=== PATIENT | female | born 1975 | race Hispanic/Latino ===

== ENCOUNTER 2022-08-09 10:08 | Inpatient (IN) | payer BC ==
[2022-08-08 12:24] LABS: Hemoglobin 12.9 g/dL (12.0-15.5); Platelet Count 260 10x3/uL (150-450)
[2022-08-08 13:07] LABS: HBSAg Index 0.14 S/CO (0-0.99); Hep B Surf Ag Non-Reactive S/CO (NonReactive)
[2022-08-08 13:08] LABS: Syphilis Antibody Nonreactive (Nonreactive); Syphilis Antibody Index 0.03 S/CO (<1.00 Non-Reactive)
[2022-08-08 13:09] LABS: SARS-CoV-2 NAA Rapid Test DETECTED (NotDetected)
[2022-08-09] MEDS ORDERED: Carboprost 250 MCG/ML AMP IM PRN (10:43)
[2022-08-09] MEDS ORDERED: Promethazine HCl 25 MG/ML VIAL IM PRN ×3 (10:43→19:36)
[2022-08-09] MEDS ORDERED: Bicitra 30 ML UDCUP PO PRN (10:43)
[2022-08-09] MEDS ORDERED: Methylergonovine 0.2 MG/ML VIAL IM PRN ×2 (10:43→15:29)
[2022-08-09] MEDS ORDERED: Diphenoxylate HCl/Atropine Tablet PO PRN ×2 (10:43)
[2022-08-09] MEDS ORDERED: Famotidine/PF 20 mg/2ml Vial SLOW IVP PRN (10:43)
[2022-08-09] MEDS ORDERED: Tranexamic Acid 1,000 MG in Sodium Chloride 0.9% 250 ML 250 ML IVPB PRN (10:43)
[2022-08-09] MEDS ORDERED: hydrALAZINE 20 MG/ML VIAL SLOW IVP PRN ×2 (10:43→15:29)
[2022-08-09] MEDS ORDERED: Butorphanol Tartrate 1 MG/ML VIAL SLOW IVP PRN (10:43)
[2022-08-09] MEDS ORDERED: Ondansetron PF 4 MG/2 ML Vial IVP PRN ×3 (10:43→19:36)
[2022-08-09] MEDS ORDERED: Acetaminophen 500 MG TAB PO PRN (10:43)
[2022-08-09] MEDS ORDERED: Misoprostol 200 MCG TAB PR PRN ×2 (10:43→15:29)
[2022-08-09] MEDS ORDERED: Lactated Ringer's 1,000 ML IV SCH (10:45)
[2022-08-09] MEDS ORDERED: CEFAZOLIN 2 GM in Sodium Chloride 0.9% 100 ML IVPB SCH (10:45)
[2022-08-09] MEDS ORDERED: NS w/ Oxytocin 30 units 500 ML IV SCH (10:45)
[2022-08-09 11:07] VITALS: BMI 35.9
[2022-08-09] MEDS ORDERED: Ondansetron HCl/PF 4 MG/2 ML Vial IVP PRN (11:36)
[2022-08-09] MEDS ORDERED: Fentanyl 100 MCG/2 ML VIAL SLOW IVP PRN (11:36)
[2022-08-09] MEDS ORDERED: Meperidine HCl/PF 25 MG/ML VIAL SLOW IVP PRN (11:36)
[2022-08-09] MEDS ORDERED: Naloxone HCl 0.4 mg/ml Vial IVP PRN ×4 (11:36→19:36)
[2022-08-09] MEDS ORDERED: Promethazine HCl 25 MG SUPP PR PRN ×2 (11:36→19:36)
[2022-08-09] MEDS ORDERED: Moisturizing Cream (Eucerin) 113 GM JAR TOP PRN ×2 (11:36→19:36)
[2022-08-09] MEDS ORDERED: Naloxone HCl 0.4 mg/ml Vial IV PRN ×2 (11:36→19:36)
[2022-08-09] MEDS ORDERED: Ketorolac Tromethamine 30 MG/ML VIAL IVP PRN ×2 (11:36→19:36)
[2022-08-09] MEDS ORDERED: diphenhydrAMINE 50 MG/ML VIAL IVP PRN ×2 (11:36→19:36)
[2022-08-09] MEDS ORDERED: Communication Order-Pharmacy FS SCH ×2 (11:45→19:45)
[2022-08-09] MEDS ORDERED: Ketorolac Tromethamine 30 MG/ML VIAL IVP SCH (11:45)
[2022-08-09] MEDS ORDERED: Morphine PF 10 MG/10 ML VIAL ONE (12:10)
[2022-08-09 12:53] LABS: SARS-CoV-2 NAA Rapid Test Not Detected (NotDetected)
[2022-08-09] MEDS ORDERED: Phenylephrine 40 MG/NS 250 ML 250 ML ONE (13:35)
[2022-08-09] MEDS ORDERED: Oxytocin 10 UNITS/ML VIAL ONE (13:35)
[2022-08-09] MEDS ORDERED: Ondansetron PF 4 MG/2 ML Vial ONE (13:35)
[2022-08-09] MEDS ORDERED: Ketorolac Tromethamine 30 MG/ML VIAL ONE (13:35)
[2022-08-09] MEDS ORDERED: Dexamethasone 4 mg/ml Vial ONE (13:35)
[2022-08-09] MEDS ORDERED: Boostrix 0.5 ML (Tdap) VIAL (>/=7 yrs of age) IM ONE (15:29)
[2022-08-09] MEDS ORDERED: Acetaminophen 325 MG TAB PO PRN (15:29)
[2022-08-09] MEDS ORDERED: Lanolin Ointment 7 GM TUBE TOP PRN (15:29)
[2022-08-09] MEDS ORDERED: HYDROcodone/Acetaminophen 5/325 mg Tablet PO PRN (16:24)
[2022-08-10 05:08] LABS: Hemoglobin 10.9 g/dL (12.0-15.5); Mean Corpuscular HGB CONC 33.1 g/dL (32.0-36.0); Mean Corpuscular Hemoglobin 27.7 pg (27.0-33.0); Mean Corpuscular Volume 83.5 fl (81.6-98.3); Mean Platelet Volume 10.4 fl (7.4-10.4); Platelet Count 227 10x3/uL (150-450); Red Blood Cell (RBC) Count 3.94 10x6/uL (3.90-5.03); White Blood Cell (WBC) Count 10.6 10x3/uL (3.5-10.5)
[2022-08-10] MEDS: Docusate 100 MG CAP PO SCH ×3 (07:19→20:19)
[2022-08-10] MEDS: Ferrous Sulfate 325 MG TAB PO SCH (07:20)
[2022-08-10] MEDS: Prenatal Vitamin 1 TAB PO SCH (08:37)
[2022-08-10] MEDS: HYDROcodone/Acetaminophen 5/325 mg Tablet PO PRN ×2 (08:37→20:19)
[2022-08-10] MEDS: Simethicone Chewable 80 MG TAB PO PRN ×2 (12:34→17:56)
[2022-08-10] MEDS: Ibuprofen 800 MG TAB PO SCH ×2 (14:16→22:12)
[2022-08-11] MEDS: Ibuprofen 800 MG TAB PO SCH (05:22)
[2022-08-11] MEDS: HYDROcodone/Acetaminophen 5/325 mg Tablet PO PRN (05:23)
[2022-08-11] MEDS: Ferrous Sulfate 325 MG TAB PO SCH (07:23)
[2022-08-11] MEDS: Prenatal Vitamin 1 TAB PO SCH (08:36)
[2022-08-11] MEDS: Docusate 100 MG CAP PO SCH (08:36)
[2022-08-11 11:12] VITALS: BP 116/69; TEMP 98.9
== END 2022-08-11 13:32 | disposition home or self-care (01) | DRG 788 ==
LOC: CSHLD 10:08 → CSHPP 16:30
PROVIDERS: ADMIT Obstetrics & Gynecology; ATTEND Obstetrics & Gynecology
PROC: 10D00Z1 Extraction of Products of Conception, Low, Open Approach (ICD-10-PCS; principal; 2022-08-09)
DX: O33.0 Maternal care for disproportion due to deformity of maternal pelvic bones (principal); Z3A.39 39 weeks gestation of pregnancy; Z37.0 Single live birth; Z20.822 Contact with and (suspected) exposure to COVID-19
CPT/HCPCS: 51702; 85014; 85018; 85027; 85049; 86780; 86850; 86900; 86901; 87340; J1100; J1885; J2274; J2405; J2590; J3490; J7120; S0028; U0002